=== PATIENT | female | born 1985 | race Caucasian/White ===

== ENCOUNTER → 2016-09-02 | Outpatient (CLI) | payer BC ==
--- NOTE | 2016-09-02 10:09 | KCIC ---
PROCEDURE Complete pelvic ultrasound. HISTORY Follow-up of ovarian cysts. TECHNIQUE Real-time ultrasound imaging of the pelvis using transabdominal and transvaginal window is performed. COMPARISON Pelvic ultrasound, March 19, 2015. FINDINGS Uterus is not well seen transabdominally. The ovaries are not seen. Urinary bladder is not well distended. Interpretation assumes the patient is not . The endometrial stripe is normal measuring 4 millimeters. Uterus measures 5.8 x 4.7 x 4 centimeters. Uterus is anteverted. Right ovary measures 2.8 x 1.7 x 2 cm. Small follicles are seen. Left ovary measures 3.3 x 2.7 x 1.2 cm. Color Doppler demonstrates flow in both ovaries. There is a moderate amount of complex fluid of the left adnexa. There is moderate fluid of the right adnexa, less than on the left. IMPRESSION Moderate complex fluid of the right and left adnexa. Electronically signed by: Stevo Grace MD (Sep 02, 2016 10:07:54)
== END | disposition home or self-care (01) ==
LOC: KCIC US 08:00
PROVIDERS: ATTEND Family Medicine
DX: R10.2 Pelvic and perineal pain (principal); N83.202 Unspecified ovarian cyst, left side; N83.201 Unspecified ovarian cyst, right side
CPT/HCPCS: 76830; 76856

== ENCOUNTER → 2017-01-30 | Outpatient (CLI) | payer BC ==
--- NOTE | 2017-01-30 14:16 | KCIC ---
Examination: Ultrasound pelvis HISTORY: History of endometriosis, follow-up COMPARISON: 09/02/2016 FINDINGS: The uterus measures 6.4 x 2.8 x 4.6 cm. Endometrium is 2.6 mm in thickness. The right ovary measures 3.2 x 2.3 x 2.7 cm. The left ovary measures 3.5 x 2.0 x 2.9 cm. Blood flow identified in the right and left ovaries. Moderate complex fluid identified in the right and left adnexa. There is a hypoechoic irregular appearing echogenicity identified abutting the left ovary, nonspecific etiology could be prominent appearing ovarian tissue or mass. IMPRESSION: 1. Hypoechoic irregular appearing echogenicity identified abutting the left ovary, nonspecific etiology could be prominent appearing ovarian tissue or less likely mass. MRI pelvis is recommended for further evaluation if clinically feasible. 2. Complex appearing moderate amount of fluid identified in the right and left adnexa, again identified. Electronically signed by: Noam Barron MD (01/30/2017 2:13 PM)
== END | disposition home or self-care (01) ==
LOC: KCIC US 12:12
PROVIDERS: ATTEND Family Medicine
DX: D39.10 Neoplasm of uncertain behavior of unspecified ovary (principal); R10.2 Pelvic and perineal pain
CPT/HCPCS: 76830; 76856

== ENCOUNTER → 2017-06-30 | Outpatient (CLI) | payer BC ==
--- NOTE | 2017-06-30 16:47 | KCIC ---
PELVIS W/TV Clinical Indication: Endometriosis, follow-up of left ovary. Comparison: Pelvic ultrasound, January 30, 2017. TECHNIQUE: Real-time ultrasound imaging of the pelvis using transabdominal and transvaginal window is performed. Findings: Uterus is now noted to be retroverted. Uterus measures 7.6 x 4.3 x 4.9 cm. No focal abnormality. The endometrial stripe is normal measuring 6 mm. Normal blood flow in the ovaries. The right ovary measures 3.3 x 1.9 x 2.6 cm. Left ovary measures 3.2 x 2.2 x 2.8 cm. There is dominant right ovary functional cyst measuring up to 1.4 cm. There is dominant left ovary functional cyst measuring up to 2.2 cm. Hypoechoic structure adjacent to the left ovary is similar in appearance to prior study. There is left adnexal free fluid, less than on prior study. Right adnexal free fluid is no longer seen. IMPRESSION: 1. Left adnexal free fluid, less than on prior study. Right adnexal free fluid is no longer seen. 2. There are small dominant right and left ovarian functional cysts. 3. Uterus is now retroverted. Electronically signed by: Stevo Grace MD (06/30/2017 4:44 PM) [id number]
== END | disposition home or self-care (01) ==
LOC: KCIC US 13:36
PROVIDERS: ATTEND Family Medicine
DX: N80.1 Endometriosis of ovary (principal); N83.202 Unspecified ovarian cyst, left side
CPT/HCPCS: 76830; 76856

== ENCOUNTER → 2017-12-30 | Outpatient (CLI) | payer BC | END | disposition home or self-care (01) | LOC: KCIC US 14:19 | DX: N80.1 Endometriosis of ovary (principal); N83.202 Unspecified ovarian cyst, left side | CPT/HCPCS: 76830; 76856 ==

== ENCOUNTER → 2018-06-18 | Outpatient (CLI) | payer BC ==
--- NOTE | 2018-06-18 16:29 | KCIC ---
Pelvic ultrasound dated 06/18/2018. Comparison made to 12/30/2017. And 01/30/2017. CLINICAL INDICATION: History of endometriosis and ovarian neoplasm with prior surgery in June 2016. Follow-up exam. FINDINGS: Transvaginal imaging performed. The uterus is retroverted and measures 8.0 x 4.0 x 4.3 cm. No focal uterine mass. Endometrial complex is normal in thickness for age measuring 4.5 mm. Right ovary measures 3.5 x 2.0 x 2.6 cm. Left ovary measures 2.9 x 1.8 x 3.0 cm. Complex septated cyst at the left ovary measures 1.8 x 1.4 x 2.1 cm versus 3.1 x 2.1 x 2.3 centers previously. There is normal color Doppler flow to both ovaries. No significant free fluid. IMPRESSION: 1. Interval decrease in size of complex septated cystic mass at the left ovary. 2. No new or acute findings Electronically signed by: Willy Stephenson MD (06/18/2018 4:26 PM) [facility]-[id number]
== END | disposition home or self-care (01) ==
LOC: KCIC US 15:12
PROVIDERS: ATTEND Family Medicine
DX: D39.11 Neoplasm of uncertain behavior of right ovary (principal); D39.12 Neoplasm of uncertain behavior of left ovary
CPT/HCPCS: 76830; 76856

== ENCOUNTER → 2018-09-27 | Outpatient (CLI) | payer BC ==
--- NOTE | 2018-09-27 17:11 | KCIC ---
Transabdominal and transvaginal sonography of the pelvis Clinical indications: Ovarian cyst. Follow-up study. Comparison: June 28, 2018. Transabdominal sonography: The uterus is slightly retroverted in position. The endometrial canal is poorly visualized. Therefore, transvaginal sonography will be performed. The left ovary is enlarged and contains a prominent cyst. Color Doppler flow seen within the ovarian parenchyma around the cyst. The right ovary is not visualized. Transvaginal sonography: The longitudinal and AP and transverse dimensions of the uterus are 8.0 cm and 3.2 cm and 4.9 cm respectively. The endometrial canal measures 7 mm in thickness which is normal. No uterine mass or fibroid is seen. There is a small amount of free fluid within the cul-de-sac. The left ovary measures 5.4 cm and 4.7 cm and 4.3 cm in size and contains a complex hemorrhagic cyst measuring 3.9 cm x 4.0 cm x 3.6 cm in size. This cyst appears different within the cyst noted on June 18, 2018. At that time, a complex septated cyst was seen within the left ovary measuring 2.1 cm. Therefore, this appears to represent a new hemorrhagic cyst today. The right ovary is normal and measures 3.1 cm and 2.8 cm and 1.5 cm in size. Color Doppler flow is seen within the right ovary. No adnexal mass is seen. IMPRESSION: New complex hemorrhagic cyst of the left ovary measuring up to 4 cm in greatest dimension. Small amount of free fluid is evident. Electronically signed by: Leonid Ott MD (09/27/2018 5:09 PM) [id number]
== END | disposition home or self-care (01) ==
LOC: KCIC US 11:08
PROVIDERS: ATTEND Family Medicine
DX: N83.292 Other ovarian cyst, left side (principal)
CPT/HCPCS: 76830; 76856

== ENCOUNTER → 2018-12-28 | Outpatient (CLI) | payer BC ==
--- NOTE | 2018-12-28 15:53 | KCIC ---
PELVIS W/TV History: Left ovarian cyst Comparison: 09/27/2018 Findings: Multiple transabdominal sonographic images of pelvis are submitted. Pelvic structures are poorly delineated. Transvaginal ultrasound: Multiple transvaginal sonographic images of pelvis are submitted. Uterus is retroverted. Uterus measured 8.7 x 4.4 x 5.4 cm. Endometrium measured about 1.2 cm in thickness, somewhat heterogeneous appearance. There is some fluid in the cervical canal. Right ovary measured 3.5 x 2.1 x 3.4 cm. There is a hypoechoic lesion of the right ovary about 1.9 x 1.6 x 1.3 cm. There is normal low resistance vascularity and color flow of the right ovary. Left ovary measured 3.6 x 3.9 x 2.3 cm. There is a hypoechoic lesion of the left ovary with internal septation, mild vascularity near the periphery, greatest dimension about 2.1 x 2 x 2.2 cm. However more centrally, this is nearly anechoic. Previously there was more complex appearing lesion of left ovary about 4 cm in greatest size. There is mild free fluid in the left adnexal region also with mild diffuse internal echoes present. There is also minimal free fluid in the cul-de-sac. Impression: 1. Previously there was more complex appearing and larger likely hemorrhagic cyst of the left ovary, persistent partially septated lesion now present. This is centrally nearly anechoic on this exam although given the vascularity near the periphery and septation, continued surveillance such as in 3 months is recommended. There is mild nonspecific complex free fluid in the left adnexal region and minimally of the posterior cul-de-sac. 2. There is nonspecific fluid in the cervical canal. 2. There is nonspecific somewhat heterogeneous appearance of the endometrium for which attention on follow-up advised. Electronically signed by: Kurt Kovacs MD (12/28/2018 3:50 PM) [facility]-[id number]
== END | disposition home or self-care (01) ==
LOC: KCIC US 13:41
PROVIDERS: ATTEND Family Medicine
DX: N83.202 Unspecified ovarian cyst, left side (principal)
CPT/HCPCS: 76830; 76856

== ENCOUNTER → 2019-07-04 | Outpatient (CLI) | payer BC ==
--- NOTE | 2019-07-04 16:38 | KCIC ---
STUDY: Ultrasound pelvis with transvaginal HISTORY: Follow-up ovarian cyst. COMPARISON: Multiple, most recently on 12/28/2018. TECHNIQUE: Complete pelvic ultrasound was performed with transabdominal and transvaginal probes. FINDINGS: The uterus measures approximately 8.5 x 5.7 x 3.9 cm. The endometrial stripe measures up to 0.9 cm. Previously, the endometrial stripe was measured at 1.2 cm. No discrete uterine mass or abnormal hypervascularity along the endometrial canal. The right ovary measures 3.3 x 3.1 x 2.8 cm. The left ovary measures 3.9 x 2.5 x 1.7 cm. Doppler flow is maintained to both ovaries. The previously described hypoechoic left ovarian cystic structure with internal septation measured at 2.1 x 2 x 2.2 cm is no longer identified. An avascular, ovoid focus with heterogeneous echotexture was not seen on the prior and measures 1.0 x 0.9 x 0.6 cm. This could represent a remnant of the previously seen septated cyst and indicative of a hemorrhagic cyst containing degraded blood products. A few follicles are seen on the left. On the right, simple rounded cyst measuring 2.3 x 2.3 x 2.0 cm. Small amount of free pelvic fluid. IMPRESSION: 1. The indeterminate left ovarian cyst on the most recent comparison is no longer identified. A small avascular focus within the left ovary could represent a remnant of this previously described cyst and would be consistent with evolutionary changes of a hemorrhagic cyst. No sonographic findings concerning for malignancy involving the left ovary. 2. Simple right ovarian cyst measuring up to 2.3 cm. Doppler flow is maintained to both ovaries. 3. Thickened endometrium but not atypical given patient age. No newly seen uterine abnormality. 4. Small amount of free pelvic fluid that is less voluminous relative to the prior. Electronically signed by: BELKIS NEGRETE MD (07/04/2019 4:35 PM) [facility]
== END | disposition home or self-care (01) ==
LOC: KCIC US 15:19
PROVIDERS: ATTEND Family Medicine
DX: N83.291 Other ovarian cyst, right side (principal); R93.89 Abnormal findings on diagnostic imaging of other specified body structures
CPT/HCPCS: 76830; 76856

== ENCOUNTER → 2020-05-21 | Outpatient (CLI) | payer BC ==
--- NOTE | 2020-05-21 16:45 | RAD ---
Pelvic ultrasound to include transabdominal and transvaginal imaging 05/21/2020 CLINICAL HISTORY: Endometriosis. History of endometriomas removed from ovaries. Technique: Using the distended urinary bladder as a sonographic window, a real-time ultrasound examination of the pelvis was performed. Additionally in an attempt to better evaluate the uterus and adnexa, a transvaginal ultrasound study was performed. Multiple images were obtained. Findings: Comparison study is dated 07/04/2019. The uterus is slightly retroverted. It is normal in size. It measures 8.2 x 5.2 x 3.9 cm in longitudinal, transverse, and AP dimensions. The endometrial echo complex measures 10 mm in thickness which is within normal limits. No focal abnormality of the uterus is seen. Both ovaries are within normal limits in size and echogenicity. The right ovary measures 3.5 x 2.1 x 2.0 cm in size. The left ovary measures 2.9 x 1.7 x 1.6 cm in size. A 1.2 cm dominant follicle seen involving the right ovary. A 1.4 cm dominant follicle is seen involving the left ovary. No adnexal mass is seen. A minimal amount of free fluid is seen within the pelvis. IMPRESSION: Minimal amount of free fluid. Otherwise negative study. Electronically signed by: Tr Burroughs MD (05/21/2020 4:42 PM) [id number]
== END ==
LOC: US 14:30
PROVIDERS: ATTEND Family Medicine
DX: C56.9 Malignant neoplasm of unspecified ovary (principal)
CPT/HCPCS: 76830; 76856

== ENCOUNTER → 2020-09-19 | Outpatient (CLI) | payer BC ==
--- NOTE | 2020-09-19 07:50 | RAD ---
Complete transvaginal pelvic ultrasound HISTORY: Endometriosis. Malignant neoplasm of ovary. Pelvic and perineal pain. COMPARISON: Pelvic ultrasound May 21, 2020 and prior studies. FINDINGS: Transabdominal sonography demonstrates extensive bowel gas shadowing limiting visualization of the pelvic organs. Transvaginal imaging demonstrates retroverted uterus which measures 7.8 x 4.8 x 4.3 cm. Endometrium t hickness 0.9 cm. No uterine mass documented. Structure labeled left ovary measures 5.1 x 2.4 x 3.7 cm with the cone picker measuring a 3.1 x 1.7 x 2.8 cm oval circumscribed predominantly solid appearing echogenic structure with some cystic component internally, the solid components do demonstrate blood flow on color Doppler sonography. There is intact left ovarian blood flow. Right ovary measures 2.2 x 3.4 x 2.0 cm with a couple of small follicles, there is intact right ovarian blood flow. Small volu me of pelvic free fluid adjacent of the left adnexa. IMPRESSION: 1. Left ovary enlarged due to a 3.1 x 1.7 x 2.8 cm oval solid and cystic mass, a portion of the solid components demonstrate intact blood flow by color Doppler sonography. Given that this is new from th e study from May 2020 it is probable that this is a involuting corpus luteum or acute hemorrhagic cyst with the areas of intact blood flow likely representing some vascularized ovarian parenchyma ad jacent of or incorporated within the cyst. Follow-up pelvic sonography in 3 months is advised to docu ment that this regresses over time to exclude the possibility of neoplasia. 2. Uterus, endometrium and right ovary are normal. Electronically signed by: Maurizio Viveros MD (09/19/2020 7:47 AM) [id number]
== END ==
LOC: US 06:55
PROVIDERS: ATTEND Family Medicine
DX: N83.292 Other ovarian cyst, left side (principal); C56.9 Malignant neoplasm of unspecified ovary; N80.9 Endometriosis, unspecified; R10.2 Pelvic and perineal pain; N83.8 Other noninflammatory disorders of ovary, fallopian tube and broad ligament
CPT/HCPCS: 76830; 76856

== ENCOUNTER → 2020-12-20 | Outpatient (CLI) | payer BC ==
--- NOTE | 2020-12-20 13:58 | KCIC ---
Transabdominal and transvaginal sonography of the pelvis Clinical indications: Follow-up of complex left ovarian cyst. COMPARISON: September 19, 2020. Transabdominal sonography: The uterus is retroverted in position. The endometrial canal is poorly vis ualized. No adnexal mass or free fluid is seen. No abnormal enlargement of either ovary seen. The cys t of the left ovary cannot be seen but it was better visualized transvaginally on the previous study. Therefore, transvaginal sonography will be performed. Transvaginal sonography: The longitudinal and AP and transverse dimensions of the uterus are 6.6 cm a nd 3.9 cm and 4.9 cm respectively. The endometrial canal measures 6 mm in thickness within the fundus . No uterine mass or fibroid is seen. No free fluid is evident. The left ovary measures 3.3 cm and an d 1.0 cm and 1.9 cm in size. There is a follicular cyst measuring 10 mm in size. There is a collapsed corpus luteum measuring 19 mm in size. Color Doppler flow is seen within this area and within the le ft ovary. This is smaller in size. The right ovary measures 2.5 cm and 1.6 cm and 1.6 cm in size and is normal. Color Doppler flow is seen within the right ovary. No adnexal mass is seen. IMPRESSION: Previously seen complex cystic lesion has decreased significantly in size consistent with a resolving corpus luteum. No free fluid is evident. Electronically signed by: Leonid Ott MD (12/20/2020 1:56 PM) [id number]
== END ==
LOC: KCIC US 10:31
PROVIDERS: ATTEND Family Medicine
DX: N83.202 Unspecified ovarian cyst, left side (principal)
CPT/HCPCS: 76830; 76856